=== PATIENT | male | born 1990 | race Caucasian/White ===

== ENCOUNTER 2016-08-06 02:40 | Emergency (ER) | payer BC, OTHER ==
[2016-08-06] MEDS ORDERED: Ketorolac 60 MG/2 ML SDV IM ONE (03:00)
--- NOTE | 2016-08-06 03:05 | EDM.PDOC ---
ED HPI GENERAL MEDICAL PROBLEM - General Chief Complaint: Back Pain or Injury Stated Complaint: BACK PAIN Time Seen by Provider: 08/06/16 02:46 - History of Present Illness INITIAL COMMENTS - FREE TEXT/NARRATIVE: HISTORY AND PHYSICAL: History of present illness: The patient is a 26-year-old male with no stated medical problems who follows in our family practice clinic presents with lumbar back pain that has been ongoing for the last 2-1/2 days. The patient states that he did slip on the ice and landed on his back 2 1/2 days prior to the start of his back pain and after the fall he denied experiencing any back pain so he does not connected to. He has noticed the lower back pain over the last 2-1/2 days which is bilateral and radiates around to the sides but he does not have any flank pain. Patient denies any urinary complaints such as frequency urgency hematuria or dysuria and has no bowel bladder disturbances. The back pain does not radiate to his blood or to his legs and he has no neurosensory changes or weakness in his lower extremities. The patient states the pain is worse when he would over to either side in the bed and is not particularly better or worse with standing. The patient did take Advil yesterday 4 mg per dose and he does not feel that it helped very much. He has no other systemic complaints of fever chills chest pain shortness of breath abdominal pain vomiting or diarrhea. Review of systems: As per history of present illness and below otherwise all systems reviewed and negative. Past medical history: As per history of present illness and as reviewed below otherwise noncontributory. Surgical history: As per history of present illness and as reviewed below otherwise noncontributory. Social history: No reported history of drug or alcohol abuse. Family history: As per history of present illness and as reviewed below otherwise noncontributory. Physical exam: general: Well-developed overweight male who is nontoxic and moves easily in the ED without distress. HEENT: Atraumatic, normocephalic, negative for conjunctival pallor or scleral icterus, mucous membranes moist, throat clear, neck supple, nontender, trachea midline. Lungs: Clear to auscultation, breath sounds equal bilaterally, chest nontender. Heart: S1S2, regular, negative for clicks, rubs, or JVD. Abdomen: Soft, nondistended, nontender. NABS Negative for costovertebral tenderness. Pelvis: Stable nontender. There is no specific SI joint tenderness Genitourinary: Deferred. Rectal: Deferred. Extremities: Atraumatic, negative for cords or calf pain. Neurovascular unremarkable. Neuro: Awake, alert, oriented. Cranial nerves II through XII unremarkable. Cerebellum unremarkable. Motor and sensory unremarkable throughout. Exam nonfocal. Dorsi and plantar flexion is intact bilaterally 5/5 inclusive of the great toe. Patellar reflexes are +2/4 bilaterally Back: There are no midline step-offs tenderness defects of the thoracic or lumbar spine no CVA tenderness. There is some reproducible tenderness at the upper lumbar area in the paraspinal musculature bilaterally which reproduces the pain. Diagnostics: UA I discussed with the patient lumbar spine films do to his history of a fall but he feels it is more muscular and defers those x-rays at this time Therapeutics: Toradol As the patient drove himself to the ED I will offer tramadol and muscle relaxers for home Impression: Lower back pain likely musculoskeletal stable Definitive disposition and diagnosis as appropriate pending reevaluation and review of above. Treatments WARP SPOOLER: Reports: NSAIDS Other Treatments WARP SPOOLER: 7pm back area Pain Score (Numeric/FACES): 9 - Related Data Allergies Allergy/AdvReac Type Severity Reaction Status Date / Time No Known Allergies Allergy Verified 08/06/16 02:48 Home Meds: Home Meds . [No Known Home Meds] 08/27/13 [History] Past Medical History - Past Health History Medical/Surgical History: Denies Medical/Surgical History HEENT History: Reports: None Cardiovascular History: Reports: None Respiratory History: Reports: None Gastrointestinal History: Reports: None Genitourinary History: Reports: None Musculoskeletal History: Reports: None Neurological History: Reports: None Psychiatric History: Reports: None Endocrine/Metabolic History: Reports: None Hematologic History: Reports: None Immunologic History: Reports: None Oncologic (Cancer) History: Reports: None Dermatologic History: Reports: None - Infectious Disease History Infectious Disease History: Reports: None - Past Surgical History Head Surgeries/Procedures: Reports: None GI Surgical History: Reports: Appendectomy Musculoskeletal Surgical History: Reports: Other (see below) Other Musculoskeletal Surgeries/Procedures:: # C1 Social & Family History - Family History Family Medical History: Noncontributory - Tobacco Use Smoking Status *Q: Former Smoker Years of Tobacco use: 5 Second Hand Smoke Exposure: Yes - Caffeine Use Caffeine Use: Reports: Coffee - Alcohol Use Days Per Week of Alcohol Use: 1 Number of Drinks Per Day: 1 Total Drinks Per Week: 1 - Recreational Drug Use Recreational Drug Use: No ED ROS GENERAL - Review of Systems Review Of Systems: ROS reveals no pertinent complaints other than HPI. ED EXAM, GENERAL - Physical Exam Exam: See Below (See dictation) Course - Vital Signs Last Recorded V/S: Last Vital Signs Temp 36.6 C 08/06/16 02:48 Pulse 75 08/06/16 02:48 Resp 16 08/06/16 02:48 BP 166/103 H 08/06/16 02:48 Pulse Ox 98 08/06/16 02:48 - Orders/Labs/Meds Labs: Laboratory Tests 08/06/16 Range/Units 03:00 Urine Color YELLOW Urine Appearance CLEAR Urine pH 5.5 (5.0-8.0) Ur Specific [place] >= 1.030 (1.001-1.035) Urine Protein NEGATIVE (NEGATIVE) mg/dL Urine Glucose (UA) NEGATIVE (NEGATIVE) mg/dL Urine Ketones NEGATIVE (NEGATIVE) mg/dL Urine Occult Blood SMALL H (NEGATIVE) Urine Nitrite NEGATIVE (NEGATIVE) Urine Bilirubin NEGATIVE (NEGATIVE) Urine Urobilinogen 0.2 (<2.0) EU/dL Ur Leukocyte Esterase NEGATIVE (NEGATIVE) Urine RBC 0-2 (0-2/HPF) Urine WBC 0-2 (0-5/HPF) Urine Bacteria FEW (NEGATIVE) Urine Mucus MODERATE (NONE-MOD) Meds: Medications Discontinued Medications Generic Name Dose Route Start Last Admin Trade Name Francheska PRN Reason Stop Dose Admin Ketorolac Tromethamine 60 mg 08/06/16 03:00 08/06/16 03:05 Toradol IM 08/06/16 03:01 60 mg ONETIME ONE Administration Departure - Departure Time of Disposition: 03:29 Disposition: Home, Self-Care 01 Condition: good Clinical Impression: Low back pain Qualifiers: Chronicity: acute Back pain laterality: bilateral Sciatica presence: without sciatica Qualified Code(s): M54.5 - Low back pain Referrals: PCP,None [Primary Care Provider] - Forms: ED Department Discharge Additional Instructions: The following information is given to patients seen in the emergency department who are being discharged to home. This information is to outline your options for follow-up care. We provide all patients seen in our emergency department with a follow-up referral. The need for follow-up, as well as the timing and circumstances, are variable depending upon the specifics of your emergency department visit. If you don't have a primary care physician on staff, we will provide you with a referral. We always advise you to contact your personal physician following an emergency department visit to inform them of the circumstance of the visit and for follow-up with them and/or the need for any referrals to a consulting specialist. The emergency department will also refer you to a specialist when appropriate. This referral assures that you have the opportunity for followup care with a specialist. All of these measure are taken in an effort to provide you with optimal care, which includes your followup. Under all circumstances we always encourage you to contact your private physician who remains a resource for coordinating your care. When calling for followup care, please make the office aware that this follow-up is from your recent emergency room visit. If for any reason you are refused follow-up, please contact the [facility] emergency department at and ask to speak to the emergency department charge nurse. [facility] [place] [address] Apply heat to areas and try to stretch and open up the areas as we discussed. Please take medications as needed and prescribed and please call and followup with your provider in the clinic in several days for reevaluation and further care. Return to ER as needed and as discussed The patient will be given Flexeril 10 mg by mouth 3 times a day when necessary , diclofenac/full care and 75 mg by mouth twice a day when necessary and Ultram to use one home all from [facility].
[2016-08-06 03:40] VITALS: BP 160/90
== END 2016-08-06 03:39 | disposition home or self-care (01) ==
LOC: MW.ED 02:40
DX: M54.5 Low back pain (principal); Z90.49 Acquired absence of other specified parts of digestive tract; Z87.891 Personal history of nicotine dependence
CPT/HCPCS: 81001; 96372; 99283; J1885

== ENCOUNTER 2024-12-13 14:39 | Emergency (ER) | payer SELFPAY ==
[2024-12-13] MEDS: Diphtheria,Pertussis(Acell),Tetanus Vaccine 0.5 ML Syringe IM ONE (15:25)
[2024-12-13 16:04] VITALS: BP 147/98; PULSE 91
== END 2024-12-13 16:05 | disposition home or self-care (01) ==
LOC: MW.ED 14:39
DX: S01.01XA Laceration without foreign body of scalp, initial encounter (principal); Z90.49 Acquired absence of other specified parts of digestive tract; Z23 Encounter for immunization; W20.8XXA Other cause of strike by thrown, projected or falling object, initial encounter
CPT/HCPCS: 12001; 90471; 90715; 99282-25; 99283

== ENCOUNTER 2024-12-25 11:27 | Emergency (ER) | payer SELFPAY ==
[2024-12-25 11:41] VITALS: BP 127/75; PULSE 87
== END 2024-12-25 11:44 | disposition left against medical advice (07) ==
LOC: MW.ED 11:27
DX: Z53.21 Procedure and treatment not carried out due to patient leaving prior to being seen by health care provider (principal)